=== PATIENT | female | born 1945 | race Caucasian/White ===

== ENCOUNTER 2023-08-12 15:54 | Outpatient (AMB) | payer MEDICARE, SELFPAY ==
--- NOTE | 2023-08-12 15:54 | MHC.OFFWIV ---
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 The patient states approximately 2 weeks ago she used a Q-tip to clean her right ear and she felt blockage in her right ear thereafter and has decreased hearing since that time. The patient states that her friend, who is a nurse looked in her right ear and noted dried blood. Patient denies having any fevers, chills, left ear pain or sore throat. PFSH Social History Patient Tobacco Use Status: Never used Tobacco Review of Systems Const All systems reviewed & are unremarkable except as noted in HPI and below Eyes Reports no additional complaints ENT Denies Normal hearing present (decreased hearing right ear), Reports hearing loss (right ear) and Denies sore throat Neuro Denies Normal hearing present (decreased hearing right ear) Physical Exam Vital Signs: Last Vital Signs Temp 97.8 F 08/12/23 15:59 Pulse 88 08/12/23 15:59 BP 128/78 08/12/23 15:59 Pulse Ox 98 08/12/23 15:59 Oxygen Delivery Method Room Air 08/12/23 15:59 Const Other: Patient is afebrile General: cooperative, healthy appearing, comfortable and no acute distress Nutritional Appearance: average body habitus Orientation/consciousness: patient oriented x3 Limitations: no limitations HEENT Head: Yes normal to inspection and Yes normocephalic Ears: hearing grossly abnormal bilaterally (decreased hearing right ear), external ears normal, right TM abnormal (dried blood and ?foreign body adjacent to right TM with cerumen), TM normal on the left and other (excoriation, erythema and edema of right canal) General nose exam: Normal external nose present Mouth: Normal oral and palatal mucosa present and moist mucous membranes Throat: Yes posterior oropharynx normal Eyes Periorbital: periorbital findings normal Eyelids: Yes eyelids normal Conjunctivae: conjunctivae normal Sclerae: sclerae normal Pupils: Equal, round and reactive pupils present Neuro General: patient oriented x3 Cranial nerves: Yes Equal, round and reactive pupils present and No Normal hearing present (decreased hearing right ear) Psych Appearance: grossly normal Mental Status: mental status grossly normal Insight: Good insight present (Psych) Judgement: Good judgement present (Psych) Assessment & Plan Assessment & Plan (1) Otitis externa: Code(s): H60.90 - Unspecified otitis externa, unspecified ear Plan: Otic antibiotic drops 4gtt q8 hours for 7 days; patient advised to NOT use Q.tips while treating otitis externa. (2) Foreign body in ear present on examination: Code(s): T16.9XXA - Foreign body in ear, unspecified ear, initial encounter Plan: Tylenol as needed for any discomfort. Medications: New [id number]-EI 3.5-10,000-1 mg/mL-unit/mL-% 4 drps otic (ear) right Q8H 10 mL 0RF Coding Level of Care Code New Pt Level 3 (75886) Diagnoses Otitis externa H60.90 Foreign body in ear present on examination T16.9XXA Time Spent (min) 25
[2023-08-12 15:59] VITALS: BP 128/78; PULSE 88; TEMP 36.6; O2SAT 98
== END 2023-08-12 17:04 | disposition home or self-care (01) ==
PROVIDERS: PCP Internal Medicine; Visit Provider Physician Assistant
DX: H60.91 Unspecified otitis externa, right ear (principal); T16.1XXA Foreign body in right ear, initial encounter
CPT/HCPCS: 99203